=== PATIENT | male | born 1980 | race Caucasian/White ===

== ENCOUNTER 2016-04-04 15:28 | Emergency (ER) | payer OTHER ==
[~2016-04-04] VITALS: Ht 185.4 cm; Wt 155.6 kg
[2016-04-04 15:58] VITALS: BP 133/84
--- NOTE | 2016-04-04 17:27 | ED UPPER/LOWER EXTREMITY COMPL ---
History of Present Illness General Chief Complaint: Lower Extremity Injury Stated Complaint: STEPPED ON NAIL THURS, LEFT FOOT PAIN Source: patient Exam Limitations: no limitations Vital Signs & Intake/Output Vital Signs & Intake/Output Vital Signs Date Time Temp Pulse Resp B/P Pulse O2 O2 Flow FiO2 Ox Delivery Rate 04/04 1558 97.9 77 18 133/84 99 Room Air Allergies Coded Allergies: No Known Allergies (04/04/16) Reconcile Medications Amoxicillin/Potassium Clav (Augmentin 875-125 Tablet) 875 MG-125 MG TABLET 1 TAB PO BID PUNCTURE WOUND Ciprofloxacin HCl (Cipro) 500 MG TABLET 1 TAB PO BID PUNCTURE WOUND Ketorolac Tromethamine 10 MG TABLET 1 TAB PO TID PRN PAIN Triage Note: PRESENTS TO ED FOR EVALUATION OF LEFT FOOT. HE ACCIDENTALLY STEPPED ON A NAIL THIS PAST MONDAY HE WAS EVALUATED AND TREATED AT THE TIME HOWEVER THE SITE IS NOW BECOMING VERY PAINFULL. Triage Nurses Notes Reviewed? yes Onset: Abrupt Duration: getting worse Timing: recent history Severity: severe Severity Numbers: 7 HPI: Patient is a 35-year-old male who presents emergency room stating that on 4 days ago patient while wearing shoes and socks stepped on a nail and was stated nail was embedded to patient's left plantar aspect of his foot where he removed the nail and since patient has been complaining of gradually worsening swelling and pain to the bottom of his foot. Denies any bleeding. Denies any fever chills. Patient states that ambulation makes worse. Denies any ankle pain or swelling. Patient took ibuprofen and Tylenol with minimal relief of symptoms. He was evaluated today after the injury and received tetanus at an urgent care facility however no medications were administered (CONCHIS MESA) Past History Travel History Traveled to [place] past 21 day No Medical History Any Pertinent Medical History? none Surgical History Surgical History: non-contributory Psychosocial History What is your primary language Polish Tobacco Use: Never used Family History Hx Contributory? No (CONCHIS MESA) Review of Systems Review of Systems Constitutional: Reports: no symptoms. EENTM: Reports: no symptoms. Respiratory: Reports: no symptoms. Cardiovascular: Reports: no symptoms. Gastrointestinal/Abdominal: Reports: no symptoms. Genitourinary: Reports: no symptoms. Musculoskeletal: Reports: see HPI. Skin: Reports: see HPI. Neurological/Psychological: Reports: no symptoms. Hematologic/Endocrine: Reports: no symptoms. Immunological: Reports: no symptoms. All Other Systems: Reviewed and Negative (CONCHIS MESA) Physical Exam Physical Exam General Appearance: no apparent distress, alert, comfortable Neurologic/Tendon: normal sensation, normal motor functions, normal tendon functions, responds to pain, no evidence tendon injury, no pulse deficit Skin: intact Comments: Well-developed well-nourished patient in no apparent distress. HEENT: Atraumatic, extraocular motion intact Neck: Supple, FROM, no lymphadenopathy Back: FROM, Nontender Extremities: full range of motion Neuro: Alert and oriented x3 Skin: Warm & dry;No appreciable rash on exposed skin Psych: Mood affect normal, normal memory normal judgment. Diagram Feet Bottom 1) Mild erythema and warmth and tenderness noted with centralized minimal 2 mm well-healing puncture wound site with skin intact no active bleeding no active discharge (CONCHIS MESA) Progress Differential Diagnosis: arterial insufficiency, compartment syndrome, contusion, dislocation, DVT, fracture, gout, septic arthritis, sprain, tendon injury, RETAINED FOREIGN BODY Plan of Care: Orders Procedure Date/time Status Durable Medical Equipment 04/04 1816 Active On initial examination there was concerns of surrounding infection erythema and warmth to the puncture wound site however skin was intact and no active bleeding or discharge was noted. X-rays are unremarkable for foreign body retention. I discussed with patient that a foreign body is not absolutely identified through x-rays and advised patient to begin nonweightbearing status elevation and compression with Gilbert wrap and began antibiotics and pain medications and if no better on Monday to follow-up with surgeon for further evaluation and treatment patient will comply and had no questions. No systemic signs and symptoms of infection Gilbert wrap was administered to patient's left foot with pre-and post-neurovascular was intact crutches were instructed for nonweightbearing status until he has no pain with ambulation (CONCHIS MESA) Diagnostic Imaging: Viewed by Me: Radiology Read. Radiology Impression: no acute abnormality, no foreign body seen Comments: PATIENT: KIT JONES PRESENT AGE: 35 PATIENT ACCOUNT NO: [id number] : 80 LOCATION: [facility] ORDERING PHYSICIAN: CONCHIS MAIN SERVICE DATE: 04/04/16-1727 EXAM TYPE: RAD - XRY-FOOT TWO VIEWS, LEFT EXAMINATION: XR FOOT, LEFT CLINICAL INFORMATION: History of stepping on a nail. Puncture wound to plantar aspect of the fourth/fifth metatarsal. COMPARISON: None TECHNIQUE: AP, lateral, and oblique views of the left foot. FINDINGS: The bones are normal. No fracture. Alignment is anatomic. Joint spaces are maintained. There is soft tissue swelling involving the lateral and dorsal aspect of the forefoot. No radiopaque foreign bodies are seen. A small plantar calcaneal spur is noted. IMPRESSION: Soft tissue swelling. No foreign bodies. No fracture. (CONCHIS MESA) Departure Departure Disposition: HOME OR SELF CARE Condition: Stable Clinical Impression Primary Impression: Puncture wound of left foot Secondary Impressions: Cellulitis of foot, Retained foreign body Referrals: EDIN LOPES,TUNG (PCP/Family) NAIDA LOPES,CAMILO Hernandez Additional Instructions: As discussed begin using the crutches and to you walk without pain. Begin using the Gilbert wrap for swelling. Begin the prescription of ketorolac for pain and inflammation. Begin the prescription of ciprofloxacin and Augmentin for your presenting complaints. If symptoms worsen or if he develop any new concerning symptoms return to emergency room. Prescriptions are waiting at [facility] [facility]. If no better in 5 DAYS follow-up with surgeon Dr. Costello for further evaluation treatment Departure Forms: Customer Survey General Discharge Information Prescriptions: Current Visit Scripts Amoxicillin/Potassium Clav (Augmentin 875-125 Tablet) 1 TAB PO BID #20 TAB Ciprofloxacin HCl (Cipro) 1 TAB PO BID #20 TAB Ketorolac Tromethamine 1 TAB PO TID PRN PAIN #15 TAB (CONCHIS MESA) PA/TELECOM SPECIALIST Co-Sign Statement Statement: ED Attending supervision documentation- [] I saw and evaluated the patient. I have also reviewed all the pertinent lab results and diagnostic results. I agree with the findings and the plan of care as documented in the PA's/TELECOM SPECIALIST's documentation. [X] I have reviewed the ED Record and agree with the PA's/TELECOM SPECIALIST's documentation. [] Additions or exceptions (if any) to the PAs/TELECOM SPECIALIST's note and plan are summarized below: [] (KAMI RACHEL DO)
[2016-04-04] MEDS ORDERED: AUGMENTIN 875-1 EACH PO (18:16)
[2016-04-04] MEDS ORDERED: CIPRO500 M1 PO (18:16)
[2016-04-04] MEDS ORDERED: KETOROLAC TROME10 M1 PO (18:16)
--- NOTE | 2016-04-04 18:16 | RADIOLOGY REPORT ---
EXAMINATION: XR FOOT, LEFT CLINICAL INFORMATION: History of stepping on a nail. Puncture wound to plantar aspect of the fourth/fifth metatarsal. COMPARISON: None TECHNIQUE: AP, lateral, and oblique views of the left foot. FINDINGS: The bones are normal. No fracture. Alignment is anatomic. Joint spaces are maintained. There is soft tissue swelling involving the lateral and dorsal aspect of the forefoot. No radiopaque foreign bodies are seen. A small plantar calcaneal spur is noted. IMPRESSION: Soft tissue swelling. No foreign bodies. No fracture.
== END 2016-04-04 18:27 ==
LOC: ERH 15:28
DX: S91.332A Puncture wound without foreign body, left foot, initial encounter (principal); L03.116 Cellulitis of left lower limb; W45.0XXA Nail entering through skin, initial encounter
CPT/HCPCS: 73620-LT; 96372; J1885